=== PATIENT | female | born 1935 | race Caucasian/White ===

== ENCOUNTER 2017-02-01 07:22 | Day surgery (SDC) | payer BC ==
--- NOTE | ~2017-02-01 | EGD ---
EGD REPORT [facility] [address] [id number] NAME: BEE MCKNIGHT : 39 STATUS : REG [facility]#: [id number] AGE: 81 ADM/REG DATE : 02/01/17 MR#: [id number] REPORT SERV DATE: 02/01/17 DICTATED BY: TONI GARZA DATE: 02/01/17 REPORT STATUS : Draft [facility]: [facility] DATE: 02/01/17 End[facility] Center Patient Name: Bee Mcknight Date of : 1935 Attending MD: TONI GARZA MD Procedure Date No Time: 02/01/2017 Procedure: Colonoscopy Indications: Heme positive stool, FH of Colonic Polyps - 1st degree relative Referring MD: YOUSIF PEARSON Medicines: as per anesthesia Complications: No immediate complications. Procedure: Pre-Anesthesia Assessment: - ASA Grade Assessment: III - A patient with severe systemic disease. After I obtained informed consent, the scope was passed under direct vision. Throughout the procedure, the patient's blood pressure, pulse, and oxygen saturations were monitored continuously. The PCF [id number] was introduced through the anus and advanced to the cecum, identified by appendiceal orifice and ileocecal valve. The colonoscopy was somewhat difficult due to restricted mobility of the colon and a tortuous colon. The patient tolerated the procedure. The quality of the bowel preparation was adequate to identify polyps. Findings: The perianal and digital rectal examinations were normal. Three sessile polyps were found in the ascending colon. The polyps were 3 to 4 mm in size. These polyps were removed with a cold biopsy forceps. Resection and retrieval were complete. A sessile polyp was found in the transverse colon. The polyp was 3 mm in size. The polyp was removed with a cold biopsy forceps. Resection and retrieval were complete. Many small and large-mouthed diverticula were found in the sigmoid colon and in the descending colon. Internal hemorrhoids were found during endoscopy and were mild. xrt changes in rectum and sigmoid Impression: - Three 3 to 4 mm polyps in the ascending colon. Resected and retrieved. - One 3 mm polyp in the transverse colon. Resected and retrieved. - Diverticulosis in the sigmoid colon and in the descending colon. EGD REPORT [address] [place]. [address] NAME: BEE MCKNIGHT : 39 STATUS : REG [facility] [place] PAT#: [id number] AGE: 81 ADM/REG DATE : 02/01/17 MR#: [id number] REPORT SERV DATE: 02/01/17 DICTATED BY: TONI GARZA DATE: 02/01/17 REPORT STATUS : Draft TRANSCRIBED BY: [employer] DATE: 02/01/17 - Internal hemorrhoids. Recommendation: - Await pathology results. - Repeat colonoscopy for surveillance based on pathology results. Procedure Code(s): --- Professional --- 16257, Colonoscopy, flexible, proximal to splenic flexure; with biopsy, single or multiple Diagnosis Code(s): --- Professional --- D12.3, Benign neoplasm of transverse colon D12.2, Benign neoplasm of ascending colon K64.8, Other hemorrhoids K57.30, Diverticulosis of large intestine without perforation or abscess without bleeding R19.5, Other fecal abnormalities Z83.71, Family history of colonic polyps CPT copyright 2013 [employer]. All rights reserved. The codes documented in this report are preliminary and upon online user experience strategist review may be revised to meet current compliance requirements. TONI GARZA MD 02/01/2017 10:38 AM This report has been signed electronically. Number of Addenda: 0 Note Initiated On: 02/01/2017 9:53 AM Scope Withdrawal Time 0 hours 10 minutes 35 seconds [id number] [place] [id number]
[~2017-02-01 07:22] MED LIST: ASAB PO; AYGESTIN5 MG PO; CALTRA600D PO; CENTRUM TAB1 TAB PO; COZAAR100 MG PO; ESTRACE0.5 MG PO; INDE80LA PO; L20 PO; LEVOTHYROXIN75 MCG PO; LIPITOR10 PO; LOFIBRA134 MG PO; MICRO-K10 MEQ PO; NEUR600 PO; NORV5 PO; OCUVITE PO; REMERON30 MG PO; SYN1 PO; TYLENOL PM PO; VITAMIN D31000 UNIT PO; ZOVIRAX400 MG PO
== END 2017-02-01 23:59 | disposition home or self-care (01) ==
LOC: DMU 07:22
PROVIDERS: Internal Medicine Gastroenterology
PROC: 0DBL8ZZ Excision of Transverse Colon, Via Natural or Artificial Opening Endoscopic (ICD-10-PCS; 2017-02-01)
PROC: 0DBK8ZZ Excision of Ascending Colon, Via Natural or Artificial Opening Endoscopic (ICD-10-PCS; principal; 2017-02-01 09:00)
DX: D12.2 Benign neoplasm of ascending colon (principal); D12.3 Benign neoplasm of transverse colon; Z88.1 Allergy status to other antibiotic agents; G57.93 Unspecified mononeuropathy of bilateral lower limbs; G47.33 Obstructive sleep apnea (adult) (pediatric); I10 Essential (primary) hypertension; E78.00 Pure hypercholesterolemia, unspecified; E03.9 Hypothyroidism, unspecified; Z79.899 Other long term (current) drug therapy
CPT/HCPCS: 88305